=== PATIENT | female | born 1995 | race African-American/Black ===

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

== ENCOUNTER 2017-01-11 19:39 | Emergency (ER) | payer BC ==
[~2017-01-11 19:39] MED LIST changes: -AMOX875T PO; +IBUP-232 PO; -MAGICADU2 SWISH-SWAL
[2017-01-11 19:42] VITALS: BP 129/71; PULSE 88; RESP 18; TEMP 99; O2SAT 100
[2017-01-11 20:23] LABS: AUTOMATED NEUTROPHIL # 1.4 TH/MM3 (1.8-7.7); BASOPHIL # 0.1 TH/MM3 (0-0.2); BASOPHIL % 1.8 % (0.0-2.0); EOSINOPHIL # 0.1 TH/MM3 (0-0.4); EOSINOPHIL % 1.6 % (0.0-4.0); HEMATOCRIT 28.8 % (35.0-46.0); HEMO FLAGS DIFF FINAL; LYMPH % 49.4 % (9.0-44.0); LYMPHOCYTE # 1.9 TH/MM3 (1.0-4.8); MEAN CELL VOLUME 64.8 FL (80.0-100.0); MEAN CORPUSCULAR HEMOGLOBIN 19.2 PG (27.0-34.0); MONO % 11.4 % (0.0-8.0); NEUT % 35.8 % (16.0-70.0); PLATELET COUNT 249 TH/MM3 (150-450); RED BLOOD COUNT 4.44 MIL/MM3 (4.00-5.30); RED CELL DISTRIBUTION WIDTH 18.9 % (11.6-17.2); WHITE BLOOD COUNT 3.8 TH/MM3 (4.0-11.0)
[2017-01-11 20:26] LABS: BLOOD, URINE NEG (NEG); COMMENT (UR) CULT NOT INDICATED; CULTURE IF INDICATED CULT NOT INDICATED; GLUCOSE,URINE NEG (NEG); KETONE, URINE NEG (NEG); MUCUS URINE FEW /lpf (OCC); NITRITE,URINE NEG (NEG); SQUAMOUS EPITHELIAL CELL URINE 7 /hpf (0-5); URINE COLOR YELLOW (YELLW/STRAW)
[2017-01-11 20:37] LABS: MEAN CORPUSCULAR HGB CONC 29.6 % (32.0-36.0)
[2017-01-11 20:46] LABS: ALT (GPT) 20 U/L (9-42); ANION GAP 9 MEQ/L (5-15); AST (GOT) 19 U/L (16-38); BICARBONATE 23.5 MEQ/L (21.0-32.0); BLOOD UREA NITROGEN 6 MG/DL (7-18); CHLORIDE 109 MEQ/L (98-107); GLOMERULAR FILTRATION RATE 147 ML/MIN (>89); POTASSIUM 3.6 MEQ/L (3.5-5.1); SODIUM (NA) 141 MEQ/L (136-145)
[2017-01-11 20:49] LABS: ALKALINE PHOSPHATASE 48 U/L (45-117); TOTAL BILIRUBIN ADULT 0.2 MG/DL (0.2-1.0)
[2017-01-11 20:58] VITALS: BP 123/71; PULSE 86; RESP 18; O2SAT 100
[2017-01-11] MEDS ORDERED: VITATAB43 PO (20:58)
[2017-01-11 21:09] VITALS: BP_SYST 111; BP_SYST 113; BP_SYST 120; BP_DIAS 63; BP_DIAS 68; RESP 16; RESP 18
[2017-01-11] MEDS ORDERED: SE-NTAB3 PO (21:22)
--- NOTE | 2017-01-11 21:22 | PD ---
HPI Chief Complaint: General Weakness Time Seen by Provider: 21:05 Travel History International Travel<30 days: No Contact w/Intl Traveler<30days: No Traveled to known affect area: No History of Present Illness HPI patient states that she has a history of heavy menses, and is currently just finished it. patient was feeling lightheaded and dizzy at work and nearly passed out twice. no actual syncopal episode...otherwise healthy and denies previous transfusions or other medical issues. PFSH Past Medical History Anemia: Yes Developmental Delay: No Diminished Hearing: No Immunizations Current: Yes Tetanus Vaccination: < 5 Years ?: Not LMP: 12/19/16 Menopausal: No Past Surgical History Surgical History: No Previous Surgery Social History Alcohol Use: No Tobacco Use: No Substance Use: No Allergies-Medications (Allergen,Severity, Reaction): Coded Allergies: No Known Allergies (Verified , 04/07/16) Reported Meds & Prescriptions Reported Meds & Active Scripts Active Tamiflu (Oseltamivir Phosphate) 75 Mg Cap 75 Mg PO BID 5 Days Se-Han 19 29-1 mg ( Vit W/ Docusate-Fe Fu) 29 Mg Iron-1 Mg-25 Mg Tab 1 Tab PO DAILY Reported Vitamin B20-Qyvvn Acid (Cobalamine Combinations) 500-400 Mcg Tab 1 Tab PO DAILY Review of Systems General / Constitutional: No: Fever Eyes: No: Visual changes HENT: Positive: Lightheadedness Cardiovascular: No: Chest Pain or Discomfort Respiratory: No: Shortness of Breath Gastrointestinal: No: Abdominal Pain Genitourinary: No: Dysuria Musculoskeletal: No: Pain Skin: No Rash Neurologic: No: Weakness Psychiatric: No: Depression Endocrine: No: Polydipsia Hematologic/Lymphatic: No: Easy Bruising Physical Exam Narrative GENERAL: SKIN: Warm and dry. HEAD: Atraumatic. Normocephalic. EYES: Pupils equal and round. No scleral icterus. No injection or drainage. ENT: No nasal bleeding or discharge. Mucous membranes pink and moist. NECK: Trachea midline. No JVD. CARDIOVASCULAR: Regular rate and rhythm. RESPIRATORY: No accessory muscle use. Clear to auscultation. Breath sounds equal bilaterally. GASTROINTESTINAL: Abdomen soft, non-tender, nondistended. MUSCULOSKELETAL: Extremities without clubbing, cyanosis, or edema. No obvious deformities. NEUROLOGICAL: Awake and alert. No obvious cranial nerve deficits. Motor grossly within normal limits. Five out of 5 muscle strength in the arms and legs. Normal speech. PSYCHIATRIC: Appropriate mood and affect; insight and judgment normal. Data Data Last Documented VS Vital Signs Date Time Temp Pulse Resp B/P (MAP) Pulse Ox O2 Delivery O2 Flow Rate FiO2 01/11/17 21:09 79 16 113/63 (80) 81 16 111/68 (82) 85 18 120/68 (85) 01/11/17 20:58 100 Room Air 01/11/17 19:42 99.0 Orders Orders Complete Blood Count With Diff (01/11/17 19:48) Comprehensive Metabolic Panel (01/11/17 19:48) Urinalysis - C+S If Indicated (01/11/17 19:48) Orthostatic Vital Signs (01/11/17 21:05) Sodium Chlor 0.9% 1000 Ml Inj (Ns 1000 M (01/11/17 21:30) Labs Laboratory Tests Test 01/11/17 20:05 01/11/17 20:10 White Blood Count 3.8 TH/MM3 Red Blood Count 4.44 MIL/MM3 Hemoglobin 8.5 GM/DL Hematocrit 28.8 % Mean Corpuscular Volume 64.8 FL Mean Corpuscular Hemoglobin 19.2 PG Mean Corpuscular Hemoglobin Concent 29.6 % Red Cell Distribution Width 18.9 % Platelet Count 249 TH/MM3 Mean Platelet Volume 8.9 FL Neutrophils (%) (Auto) 35.8 % Lymphocytes (%) (Auto) 49.4 % Monocytes (%) (Auto) 11.4 % Eosinophils (%) (Auto) 1.6 % Basophils (%) (Auto) 1.8 % Neutrophils # (Auto) 1.4 TH/MM3 Lymphocytes # (Auto) 1.9 TH/MM3 Monocytes # (Auto) 0.4 TH/MM3 Eosinophils # (Auto) 0.1 TH/MM3 Basophils # (Auto) 0.1 TH/MM3 CBC Comment DIFF FINAL Differential Comment Blood Urea Nitrogen 6 MG/DL Creatinine 0.63 MG/DL Random Glucose 85 MG/DL Total Protein 7.7 GM/DL Albumin 3.7 GM/DL Calcium Level 9.0 MG/DL Alkaline Phosphatase 48 U/L Aspartate Amino Transf (AST/SGOT) 19 U/L Alanine Aminotransferase (ALT/SGPT) 20 U/L Total Bilirubin 0.2 MG/DL Sodium Level 141 MEQ/L Potassium Level 3.6 MEQ/L Chloride Level 109 MEQ/L Carbon Dioxide Level 23.5 MEQ/L Anion Gap 9 MEQ/L Estimat Glomerular Filtration Rate 147 ML/MIN Urine Color YELLOW Urine Turbidity HAZY Urine pH 8.0 Urine Specific [place] 1.025 Urine Protein 30 mg/dL Urine Glucose (UA) NEG mg/dL Urine Ketones NEG mg/dL Urine Occult Blood NEG Urine Nitrite NEG Urine Bilirubin NEG Urine Urobilinogen LESS THAN 2.0 MG/DL Urine Leukocyte Esterase MOD Urine RBC 1 /hpf Urine WBC 6 /hpf Urine Squamous Epithelial Cells 7 /hpf Urine Amorphous Sediment RARE Urine Mucus FEW /lpf Microscopic Urinalysis Comment CULT NOT INDICATED MDM Medical Decision Making Medical Screen Exam Complete: Yes Emergency Medical Condition: Yes Medical Record Reviewed: Yes Differential Diagnosis preg related v orthostatic vs v anemia v electrolyte abnl Narrative Course neg urine preg, ua neg for uti, electrolytes wnl but did find some anemia stable of hemoglobin 8 and with neg orthostatics...pt will be d/c home after ivf given and urged to continue taking supplemental iron Diagnosis Primary Impression: anemia Additional Impression: flu Referrals: [facility] for further care and follow up Patient Instructions: Anemia (ED), General Instructions, Influenza (DC) Scripts Oseltamivir (Tamiflu) 75 Mg Cap 75 MG PO BID for Mgmt Viral Infection for 5 Days, #10 CAP 0 Refills Prov: Reed Jensen MD 01/11/17 Vit W/ Docusate-Fe Fu (Se-Han 19 29-1 mg) 29 Mg Iron-1 Mg-25 Mg Tab 1 TAB PO DAILY for Nutritional Supplement, #30 TAB 1 Refill Prov: Reed Jensen MD 01/11/17 Disposition: 01 DISCHARGE HOME Condition: Stable Reed Jensen MD Jan 11, 2017 21:22
[2017-01-11] MEDS ORDERED: SODIUM CHLOR 0.9% 1000 ML INJ 1,000 ML IV ONE (21:30)
[2017-01-11] MEDS ORDERED: OSEL75 PO (21:54)
== END 2017-01-11 22:52 | disposition home or self-care (01) ==
LOC: NEPE 19:39
DX: D64.9 Anemia, unspecified (principal); J11.1 Influenza due to unidentified influenza virus with other respiratory manifestations
CPT/HCPCS: 80053; 81001; 85025; 99283; J7030

== ENCOUNTER 2017-06-29 16:43 | Emergency (ER) | payer BC, OTHER ==
[~2017-06-29 16:43] MED LIST changes: -IBUP-232 PO; +OSEL75 PO; +SE-NTAB3 PO; +VITATAB43 PO
[2017-06-29] MEDS ORDERED: IOHEXOL 350 MG/ML 10 ML VIAL (for RAD DIAG) IVCONTRAST ONE (16:44)
[2017-06-29 16:53] VITALS: BP 141/67; PULSE 89; RESP 20; TEMP 98.6; O2SAT 100
[2017-06-29] MEDS ORDERED: SODIUM CHLOR 0.9% 1000 ML INJ 1,000 ML IV ONE (17:27)
[2017-06-29] MEDS ORDERED: SODIUM CHLORIDE 0.9% FLUSH 10 ML FLUSH IVF PRN (17:30)
--- NOTE | 2017-06-29 17:31 | PD ---
HPI Chief Complaint: Headache Time Seen by Provider: 17:09 Travel History International Travel<30 days: No Contact w/Intl Traveler<30days: No Traveled to known affect area: No History of Present Illness HPI Patient 21-year-old female presents emergency department with multiple complaints. She states it all started this afternoon after she drank sugary slushy. She states she had a headache followed by a nosebleed followed by palpitations followed by chest tightness followed by feeling like she was going to pass out and had shortness of breath. Patient has had several syncopal episodes in the past she attributes to anemia. She is coming by her mother who states that she has been intermittently taking her iron pills. She states currently she still feels somewhat weak. Family history of heart disease heart attack starting in females is young the age of mid 30s. Patient states she is feeling better with the symptoms are still there. Context as above, duration as above, associated signs and symptoms as above PFSH Past Medical History Anemia: Yes Developmental Delay: No Diminished Hearing: No Immunizations Current: Yes ?: Unknown Menopausal: No Social History Alcohol Use: No Tobacco Use: No Substance Use: No Allergies-Medications (Allergen,Severity, Reaction): Coded Allergies: No Known Allergies (Verified Allergy, Unknown, 06/29/17) Reported Meds & Prescriptions Reported Meds & Active Scripts Active Tamiflu (Oseltamivir Phosphate) 75 Mg Cap 75 Mg PO BID 5 Days Se-Han 19 29-1 mg ( Vit W/ Docusate-Fe Fu) 29 Mg Iron-1 Mg-25 Mg Tab 1 Tab PO DAILY Reported Vitamin R02-Lbhzs Acid (Cobalamine Combinations) 500-400 Mcg Tab 1 Tab PO DAILY Review of Systems Except as stated in HPI: all other systems reviewed are Neg Physical Exam Narrative GENERAL: Well-developed, thin female in no obvious distress SKIN: Focused skin assessment warm/dry. HEAD: Atraumatic. Normocephalic. EYES: Pupils equal and round. No scleral icterus. No injection or drainage. ENT: No nasal bleeding or discharge. Mucous membranes pink and moist. NECK: Trachea midline. No JVD. CARDIOVASCULAR: Regular rate and rhythm. No murmur appreciated. RESPIRATORY: No accessory muscle use. Clear to auscultation. Breath sounds equal bilaterally. GASTROINTESTINAL: Abdomen soft, non-tender, nondistended. Hepatic and splenic margins not palpable. MUSCULOSKELETAL: No obvious deformities. No clubbing. No cyanosis. No edema. NEUROLOGICAL: Awake and alert. Cranial nerves II through XII grossly intact and nonfocal, 5 out of 5 strength in all 4 extremities. Cerebellar testing negative, ambulates with an even narrow-base gait PSYCHIATRIC: Appropriate mood and affect; insight and judgment normal. Data Data Last Documented VS Vital Signs Date Time Temp Pulse Resp B/P (MAP) Pulse Ox O2 Delivery O2 Flow Rate FiO2 06/29/17 20:35 06/29/17 20:04 16 06/29/17 19:41 92 100 Room Air 06/29/17 16:53 98.6 Orders Orders Electrocardiogram (06/29/17 17:27) Ed Urine Pregnancytest Poc (06/29/17 17:27) Complete Blood Count With Diff (06/29/17 17:27) Comprehensive Metabolic Panel (06/29/17 17:27) Ckmb (Isoenzyme) Profile (06/29/17 17:27) Troponin I (06/29/17 17:27) Urinalysis - C+S If Indicated (06/29/17 17:27) Chest, Single Ap (06/29/17 17:27) Ecg Monitoring (06/29/17 17:27) Iv Access Insert/Monitor (06/29/17 17:27) Oximetry (06/29/17 17:27) Sodium Chloride 0.9% Flush (Ns Flush) (06/29/17 17:30) Sodium Chlor 0.9% 1000 Ml Inj (Ns 1000 M (06/29/17 17:27) D-Dimer (06/29/17 17:31) Acetaminophen (Tylenol) (06/29/17 18:30) Ct Pulmonary Angiogram (06/29/17 ) Iohexol 350 Inj (Omnipaque 350 Inj) (06/29/17 16:44) Ed Discharge Order (06/29/17 20:32) Labs Laboratory Tests Test 06/29/17 17:52 06/29/17 18:25 White Blood Count 4.1 TH/MM3 Red Blood Count 4.44 MIL/MM3 Hemoglobin 8.4 GM/DL Hematocrit 27.8 % Mean Corpuscular Volume 62.7 FL Mean Corpuscular Hemoglobin 18.8 PG Mean Corpuscular Hemoglobin Concent 30.1 % Red Cell Distribution Width 19.3 % Platelet Count 253 TH/MM3 Mean Platelet Volume 8.7 FL Neutrophils (%) (Auto) 43.4 % Lymphocytes (%) (Auto) 42.1 % Monocytes (%) (Auto) 11.0 % Eosinophils (%) (Auto) 2.0 % Basophils (%) (Auto) 1.5 % Neutrophils # (Auto) 1.8 TH/MM3 Lymphocytes # (Auto) 1.7 TH/MM3 Monocytes # (Auto) 0.5 TH/MM3 Eosinophils # (Auto) 0.1 TH/MM3 Basophils # (Auto) 0.1 TH/MM3 CBC Comment DIFF FINAL Differential Comment D-Dimer Quantitative (PE/DVT) 0.86 MG/L FEU Blood Urea Nitrogen 5 MG/DL Creatinine 0.58 MG/DL Random Glucose 100 MG/DL Total Protein 7.4 GM/DL Albumin 3.8 GM/DL Calcium Level 8.8 MG/DL Alkaline Phosphatase 47 U/L Aspartate Amino Transf (AST/SGOT) 15 U/L Alanine Aminotransferase (ALT/SGPT) 16 U/L Total Bilirubin 0.2 MG/DL Sodium Level 139 MEQ/L Potassium Level 3.6 MEQ/L Chloride Level 108 MEQ/L Carbon Dioxide Level 22.7 MEQ/L Anion Gap 8 MEQ/L Estimat Glomerular Filtration Rate 162 ML/MIN Total Creatine Kinase 73 U/L Troponin I LESS THAN 0.02 NG/ML Urine Color YELLOW Urine Turbidity HAZY Urine pH 6.5 Urine Specific [place] 1.018 Urine Protein TRACE mg/dL Urine Glucose (UA) NEG mg/dL Urine Ketones NEG mg/dL Urine Occult Blood NEG Urine Nitrite NEG Urine Bilirubin NEG Urine Urobilinogen LESS THAN 2.0 MG/DL Urine Leukocyte Esterase LARGE Urine RBC 1 /hpf Urine WBC 4 /hpf Urine Squamous Epithelial Cells 16 /hpf Urine Amorphous Sediment RARE Urine Bacteria RARE /hpf Urine Mucus MOD /lpf Microscopic Urinalysis Comment CULT NOT INDICATED MDM Medical Decision Making Medical Screen Exam Complete: Yes Emergency Medical Condition: Yes Interpretation(s) EKG shows sinus rhythm with normal axis and normal R-wave progression. Bordering on LVH criteria but the patient is very thin. No concerning ST segment changes intervals otherwise within normal limits. This is borderline EKG. Differential Diagnosis PE, ACS unlikely, anemia, hyperglycemia, sphenopalatine gangleoneuralgia Narrative Course Patient room to the emergency department laboratory workup significant for elevated d-dimer, decreased hemoglobin. Patient has a history of chronic anemia and his intermittent compliance with her home iron pills. CT PE protocol was negative, EKG negative, other labs were reassuring. I discussed at length with the patient who had multiple complaints that she needs to continue taking her iron pills as her body will recover quicker from injury less prone to endorgan damage if she maintains a normal hemoglobin. Also discussed need follow-up with an SKILL TRAINING PROGRAM COORDINATOR for consideration placement on control pills. Discussed symptomatic management and return to ED criteria. Discussed aggressive hydration. She is stable for discharge. Diagnosis Primary Impression: Anemia Qualified Codes: D50.9 - Iron deficiency anemia, unspecified Additional Impression: Headache Referrals: Gilda Moore MD, Paula M. MD Meyers,Patrice Pappas MD Disposition: 01 DISCHARGE HOME Condition: Stable Pj Hicks MD Jun 29, 2017 17:31
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
[2017-06-29 18:18] LABS: AUTOMATED NEUTROPHIL # 1.8 TH/MM3 (1.8-7.7); BASOPHIL # 0.1 TH/MM3 (0-0.2); BASOPHIL % 1.5 % (0.0-2.0); EOSINOPHIL # 0.1 TH/MM3 (0-0.4); HEMATOCRIT 27.8 % (35.0-46.0); HEMOGLOBIN 8.4 GM/DL (11.6-15.3); LYMPH % 42.1 % (9.0-44.0); LYMPHOCYTE # 1.7 TH/MM3 (1.0-4.8); MEAN CELL VOLUME 62.7 FL (80.0-100.0); MEAN CORPUSCULAR HEMOGLOBIN 18.8 PG (27.0-34.0); MEAN CORPUSCULAR HGB CONC 30.1 % (32.0-36.0); MEAN PLATELET VOLUME 8.7 FL (7.0-11.0); MONOCYTE # 0.5 TH/MM3 (0-0.9); NEUT % 43.4 % (16.0-70.0); PLATELET COUNT 253 TH/MM3 (150-450); RED BLOOD COUNT 4.44 MIL/MM3 (4.00-5.30); RED CELL DISTRIBUTION WIDTH 19.3 % (11.6-17.2); WHITE BLOOD COUNT 4.1 TH/MM3 (4.0-11.0)
[2017-06-29] MEDS ORDERED: ACETAMINOPHEN 325 MG TAB PO ONE (18:30)
[2017-06-29 18:42] LABS: ALBUMIN 3.8 GM/DL (3.4-5.0); AST (GOT) 15 U/L (16-38); BICARBONATE 22.7 MEQ/L (21.0-32.0); BLOOD UREA NITROGEN 5 MG/DL (7-18); CALCIUM 8.8 MG/DL (8.5-10.1); CHLORIDE 108 MEQ/L (98-107); CREATININE 0.58 MG/DL (0.50-1.00); GLOMERULAR FILTRATION RATE 162 ML/MIN (>89); GLUCOSE,RANDOM 100 MG/DL (74-106); SODIUM (NA) 139 MEQ/L (136-145)
[2017-06-29 18:43] LABS: ALT (GPT) 16 U/L (9-42)
[2017-06-29 18:47] LABS: ALKALINE PHOSPHATASE 47 U/L (45-117); TOTAL BILIRUBIN ADULT 0.2 MG/DL (0.2-1.0); TOTAL PROTEIN 7.4 GM/DL (6.4-8.2); TROPONIN I LESS THAN 0.02 NG/ML (0.02-0.05)
[2017-06-29 18:49] LABS: AMORPHOUS SEDIMENT, URINE RARE; BACTERIA, URINE RARE /hpf; BILIRUBIN, URINE NEG (NEG); BLOOD, URINE NEG (NEG); GLUCOSE,URINE NEG (NEG); KETONE, URINE NEG (NEG); MUCUS URINE MOD /lpf (OCC); NITRITE,URINE NEG (NEG); PH, URINE 6.5 (5.0-8.5); SQUAMOUS EPITHELIAL CELL URINE 16 /hpf (0-5); URINE COLOR YELLOW (YELLW/STRAW); URINE LEUKOCYTE ESTERASE LARGE (NEG)
[2017-06-29 19:41] VITALS: BP 124/63; PULSE 92; RESP 16; O2SAT 100
[2017-06-29 20:04] VITALS: RESP 16
--- NOTE | 2017-06-29 20:18 | RADRPT ---
EXAM DATE/TIME: 06/29/2017 19:55 [facility] COMPARISON: No previous studies available for comparison. INDICATIONS : Chest tightness,shortness of breath IV CONTRAST: 70 cc Omnipaque 350 (iohexol) IV RADIATION DOSE: 5.62 CTDIvol (mGy) MEDICAL HISTORY : Anemia SURGICAL HISTORY : None. ENCOUNTER: Initial ACUITY: 1 day PAIN SCALE: 3/10 LOCATION: chest TECHNIQUE: Volumetric scanning of the chest was performed using a pulmonary embolism protocol MIP images were re constructed. Using automated exposure control and adjustment of the mA and/or kV according to patien t size, radiation dose was kept as low as reasonably achievable to obtain optimal diagnostic quality images. DICOM format image data is available electronically for review and comparison. Follow-up recommendations for detected pulmonary nodules are based at a minimum on nodule size and pa tient risk factors according to Fleischner Society Guidelines. FINDINGS: PULMONARY ARTERIES: No filling defects are seen in the pulmonary arteries through the segmental level. LUNGS: There is no consolidation or pneumothorax . No concerning pulmonary nodule is visualized. PLEURAE: There is no pleural thickening or pleural effusion. MEDIASTINUM: There is good visualization of the great vessels of the middle mediastinum. No evidence of mediastin al or hilar adenopathy/mass. MUSCULOSKELETAL: Within normal limits for patient age. MISCELLANEOUS: The visualized upper abdominal organs demonstrate no acute abnormality. CONCLUSION: No pulmonary embolus or other acute abnormality. Patrice Boland MD on June 29, 2017 at 20:15 Board Certified Radiologist. This report was verified electronically.
--- NOTE | 2017-06-30 13:49 | EKG ---
Date Performed: 06/29/2017 Time Performed: 17:41:07 PTAGE: 21 years EKG: Sinus rhythm MINIMAL VOLTAGE CRITERIA FOR LVH, CONSIDER NORMAL VARIANT BORDERLINE ECG PREVIOUS TRACING : 12/14/2007 00.11 Since the previous tracing, no significant change noted DOCTOR: Joselito Bustillos Interpretating Date/Time 06/30/2017 13:45:49
== END 2017-06-29 20:46 | disposition home or self-care (01) ==
LOC: NEPD 16:43
DX: D50.9 Iron deficiency anemia, unspecified (principal); R04.0 Epistaxis; R51 Headache; R00.2 Palpitations; R07.89 Other chest pain; R06.02 Shortness of breath; R55 Syncope and collapse; R94.31 Abnormal electrocardiogram [ECG] [EKG]
CPT/HCPCS: 71045; 71275; 80053; 81001; 82550; 84484; 84703; 85025; 85379; 93005; 96360; 99285; J7030; Q9967

== ENCOUNTER 2017-07-25 21:26 | Emergency (ER) | payer OTHER ==
[~2017-07-25] VITALS: Ht 160 cm; Wt 54.0 kg
[2017-07-25 21:41] VITALS: BP 126/80; PULSE 68; RESP 14; TEMP 98.3; O2SAT 100
[2017-07-25] MEDS ORDERED: FERR325T18 PO (21:47)
--- NOTE | 2017-07-25 22:06 | PD ---
HPI Chief Complaint: Syncope/Near-Syncope Time Seen by Provider: 21:49 Travel History International Travel<30 days: No Contact w/Intl Traveler<30days: No Traveled to known affect area: No History of Present Illness HPI 21yo F with PMH of anemia here with multiple complaints. Pt said she started feeling pain in her chest and then throughout her body and then she went to the bathroom and passed out. However, her coworker caught her and she did not fall down or hit her head. Also said she cant feel her left arm and it happens sometimes. Pt said she has been having episodes of syncope since she found out she was anemia. Also with her usual migraine headache since she got to the ED. Pt was evaluated here in June for syncope and had negative CTA for PE has not follow up as outpatient. Said she just got her insurance and have appointment this week. Denies any family history of sudden cardiac deaths. PFSH Past Medical History Anemia: Yes Developmental Delay: No Diminished Hearing: No Immunizations Current: Yes ?: Unknown Menopausal: No Past Surgical History Surgical History: No Previous Surgery Social History Alcohol Use: No Tobacco Use: No Substance Use: No Allergies-Medications (Allergen,Severity, Reaction): Coded Allergies: No Known Allergies (Verified Allergy, Unknown, 07/25/17) Reported Meds & Prescriptions Reported Meds & Active Scripts Active Reported Ferrous Sulfate 325 Mg (65 Mg Iron) Tablet 325 Mg PO BIDPC Review of Systems Except as stated in HPI: all other systems reviewed are Neg Physical Exam Narrative GENERAL: 21yo F not in distress. SKIN: Focused skin assessment warm/dry. HEAD: Atraumatic. Normocephalic. EYES: Pupils equal and round. EOMI. ENT: No nasal bleeding or discharge. Mucous membranes pink and moist. NECK: Trachea midline. No JVD. CARDIOVASCULAR: Regular rate and rhythm. No murmur appreciated. RESPIRATORY: No accessory muscle use. Clear to auscultation. Breath sounds equal bilaterally. GASTROINTESTINAL: Abdomen soft, non-tender, nondistended. MUSCULOSKELETAL: No obvious deformities. No clubbing. No cyanosis. No edema. NEUROLOGICAL: Awake and alert. No obvious cranial nerve deficits. Pt will not lift left arm. Said she does not feel anything but can feel sensation in her left digits. Normal speech. Data Data Last Documented VS Vital Signs Date Time Temp Pulse Resp B/P (MAP) Pulse Ox O2 Delivery O2 Flow Rate FiO2 5/23/18 01:24 72 16 110/67 (81) 99 Room Air 07/25/17 21:41 98.3 Orders Orders Basic Metabolic Panel (Bmp) (07/25/17 22:02) Complete Blood Count With Diff (07/25/17 22:02) Troponin I (07/25/17 22:02) Urinalysis - C+S If Indicated (07/25/17 22:02) Chest, Single Ap (07/25/17 22:02) Ct Brain W/O Iv Contrast(Rout) (07/25/17 22:02) Lorazepam Inj (Ativan Inj) (07/25/17 22:15) Labs Laboratory Tests Test 07/25/17 22:10 White Blood Count 5.4 TH/MM3 Red Blood Count 4.75 MIL/MM3 Hemoglobin 8.9 GM/DL Hematocrit 30.1 % Mean Corpuscular Volume 63.4 FL Mean Corpuscular Hemoglobin 18.7 PG Mean Corpuscular Hemoglobin Concent 29.4 % Red Cell Distribution Width 19.0 % Platelet Count 285 TH/MM3 Mean Platelet Volume 8.7 FL Neutrophils (%) (Auto) 47.1 % Lymphocytes (%) (Auto) 40.3 % Monocytes (%) (Auto) 9.7 % Eosinophils (%) (Auto) 1.0 % Basophils (%) (Auto) 1.9 % Neutrophils # (Auto) 2.5 TH/MM3 Lymphocytes # (Auto) 2.2 TH/MM3 Monocytes # (Auto) 0.5 TH/MM3 Eosinophils # (Auto) 0.1 TH/MM3 Basophils # (Auto) 0.1 TH/MM3 CBC Comment DIFF FINAL Differential Comment Blood Urea Nitrogen 7 MG/DL Creatinine 0.54 MG/DL Random Glucose 86 MG/DL Calcium Level 9.4 MG/DL Sodium Level 138 MEQ/L Potassium Level 3.6 MEQ/L Chloride Level 104 MEQ/L Carbon Dioxide Level 23.0 MEQ/L Anion Gap 11 MEQ/L Estimat Glomerular Filtration Rate 176 ML/MIN Troponin I LESS THAN 0.02 NG/ML [facility] Medical Decision Making Medical Screen Exam Complete: Yes Emergency Medical Condition: Yes Interpretation(s) EKG: NSR 65bpm. Normal axis. TWI V2. No ST segment elevation or depression. Differential Diagnosis Migraine headache vs. conversion disorder vs. atypical chest pain vs. anxiety Narrative Course 21yo F with multiple complaints. Initially she said she is unable to move her left arm but my nurse said she was able to when she had a panic attack started moving around and crying. Pt given ativan which helped. Labs reviewed, no leukocytosis. H/H low at 8.9/30.1 which is her baseline. Troponin negative. BMP unremarkable. CXR negative. CT brain negative. Pt reevaluated after ativan and all her symptoms resolved. Pt has full strength in all extremities and normal sensation. Do not think chest pain is cardiac. Return precautions given. Diagnosis Primary Impression: Anxiety Patient Instructions: General Instructions Departure Forms: Tests/Procedures Additional Instructions: Please follow up with your primary care physician in 2-3 days for possible psychiatry referral. Return to the ED if symptoms worsen. Med/Other Pt SpecificInfo: No Change to Meds Disposition: 01 DISCHARGE HOME Condition: Stable Radha Lubin DO July 25, 2017 22:06
[2017-07-25] MEDS ORDERED: LORazepam 2 MG/ML VIAL IV PUSH ONE (22:15)
[2017-07-25 22:29] LABS: AUTOMATED NEUTROPHIL # 2.5 TH/MM3 (1.8-7.7); BASOPHIL # 0.1 TH/MM3 (0-0.2); BASOPHIL % 1.9 % (0.0-2.0); EOSINOPHIL # 0.1 TH/MM3 (0-0.4); HEMATOCRIT 30.1 % (35.0-46.0); HEMOGLOBIN 8.9 GM/DL (11.6-15.3); LYMPH % 40.3 % (9.0-44.0); LYMPHOCYTE # 2.2 TH/MM3 (1.0-4.8); MEAN CELL VOLUME 63.4 FL (80.0-100.0); MEAN CORPUSCULAR HEMOGLOBIN 18.7 PG (27.0-34.0); MEAN PLATELET VOLUME 8.7 FL (7.0-11.0); MONO % 9.7 % (0.0-8.0); MONOCYTE # 0.5 TH/MM3 (0-0.9); NEUT % 47.1 % (16.0-70.0); PLATELET COUNT 285 TH/MM3 (150-450); RED BLOOD COUNT 4.75 MIL/MM3 (4.00-5.30); WHITE BLOOD COUNT 5.4 TH/MM3 (4.0-11.0)
[2017-07-25 22:45] LABS: MEAN CORPUSCULAR HGB CONC 29.4 % (32.0-36.0)
--- NOTE | 2017-07-25 22:48 | RADRPT ---
EXAM DATE: 07/25/2017 10:38 PM EDT AGE/SEX: 21 years / Female INDICATIONS: Left arm weakness and numbness. CLINICAL DATA: This is the patient's initial encounter. Patient reports that signs and symptoms have been present for 1 day and indicates a pain score of 0/10. MEDICAL/SURGICAL HISTORY: None. None. RADIATION DOSE: 56.35 CTDI (mGy) COMPARISON: No prior [facility] exams available for comparison. TECHNIQUE: CT of the head without contrast. Using automated exposure control and adjustment of the mA and/or kV according to patient size, radiation dose was kept as low as reasonably achievable to ob tain optimal diagnostic quality images. FINDINGS: Cerebrum: The ventricles are normal for age. No evidence of midline shift, mass lesion, hemorrhage or acute infarction. No extraaxial fluid collections are seen. Posterior Fossa: The cerebellum and brainstem are intact. The 4th ventricle is midline. The cerebe llopontine angle is unremarkable. Extracranial: The visualized portion of the orbits is intact. Skull: The calvaria is intact. No evidence of skull fracture. CONCLUSION: 1. Negative noncontrast CT brain. Electronically signed by: Scar Sun MD 07/25/2017 10:46 PM EDT
[2017-07-25 22:54] LABS: BLOOD UREA NITROGEN 7 MG/DL (7-18); CALCIUM 9.4 MG/DL (8.5-10.1); CHLORIDE 104 MEQ/L (98-107); CREATININE 0.54 MG/DL (0.50-1.00); GLOMERULAR FILTRATION RATE 176 ML/MIN (>89); GLUCOSE,RANDOM 86 MG/DL (74-106); SODIUM (NA) 138 MEQ/L (136-145)
[2017-07-25 22:58] LABS: TROPONIN I LESS THAN 0.02 NG/ML (0.02-0.05)
--- NOTE | 2017-07-25 23:00 | RADRPT ---
EXAM DATE: 07/25/2017 10:49 PM EDT AGE/SEX: 21 years / Female INDICATIONS: Syncope, chest pain. CLINICAL DATA: This is the patient's initial encounter. Patient reports that signs and symptoms have been present for 1 day and indicates a pain score of 0/10. MEDICAL/SURGICAL HISTORY: None. None. COMPARISON: 06/29/2017.. FINDINGS: A single AP view of the chest demonstrates the lungs to be symmetrically aerated without evidence of mass, infiltrate or effusion. The cardiomediastinal contours are unremarkable. Osseous structures a re intact. CONCLUSION: No acute cardiopulmonary disease. Electronically signed by: Abraham Murcia MD 07/25/2017 10:59 PM EDT
[2017-07-26 01:24] VITALS: BP 110/67; PULSE 72; RESP 16; O2SAT 99
--- NOTE | 2017-07-26 14:58 | EKG ---
Date Performed: 07/25/2017 Time Performed: 21:43:59 PTAGE: 21 years EKG: Sinus rhythm NORMAL ECG No significant change from prior electrocardiogram. PREVIOUS TRACING : 06/29/2017 17.41 DOCTOR: Shade Jimenez Interpretating Date/Time 07/26/2017 14:56:59
== END 2017-07-26 02:19 | disposition home or self-care (01) ==
LOC: NEPC 21:26
DX: F41.9 Anxiety disorder, unspecified (principal); D64.9 Anemia, unspecified
CPT/HCPCS: 70450; 71045; 80048; 84484; 85025; 93005; 96374; 99285; J2060